=== PATIENT | female | born 1945 ===

== ENCOUNTER → 2024-12-29 11:14 | Outpatient (CLI) | payer MEDICARE, SELFPAY | LOC: RESP 11:19 | PROVIDERS: PCP Family Medicine Geriatric Medicine; Referring Provider Student in an Organized Health Care Education/Training Program; Visit Provider Student in an Organized Health Care Education/Training Program | DX: R06.09 Other forms of dyspnea (principal); R94.2 Abnormal results of pulmonary function studies | CPT/HCPCS: 94060; 94726; 94729 ==